=== PATIENT | male | born 1970 | race Caucasian/White ===

== ENCOUNTER 2023-10-15 16:03 | Outpatient (CLI) | payer BC, SELFPAY | END 2023-10-15 16:04 | disposition home or self-care (01) | PROVIDERS: Visit Provider Physician Assistant Medical | DX: Z01.818 Encounter for other preprocedural examination (principal); I10 Essential (primary) hypertension; E78.5 Hyperlipidemia, unspecified; Z13.29 Encounter for screening for other suspected endocrine disorder; Z12.5 Encounter for screening for malignant neoplasm of prostate | CPT/HCPCS: 80053; 84443; G0103 ==

== ENCOUNTER 2023-10-21 11:29 | Outpatient (CLI) | payer BC, SELFPAY | END 2023-10-21 11:30 | disposition home or self-care (01) | LOC: LKVREF 11:29 | PROVIDERS: PCP Physician Assistant Medical; Visit Provider Physician Assistant Medical | DX: E78.5 Hyperlipidemia, unspecified (principal); R79.89 Other specified abnormal findings of blood chemistry; R73.09 Other abnormal glucose | CPT/HCPCS: 80061 ==

== ENCOUNTER 2023-10-26 10:46 | Outpatient (CLI) | payer BC, SELFPAY ==
--- NOTE | 2023-10-26 11:00 | CRLHL7_ITS ---
For Patients: As a result of the Cures Act, medical imaging exams and procedure reports are released immediately into your electronic medical record. You may view this report before your referring provider. If you have questions, please contact your health care provider. INDICATION: Lung cancer screening. History of smoking. High risk patient with greater than 20 pack-year smoking history. TECHNIQUE: Low-dose lung cancer screening non-contrast CT chest. Dose reduction techniques were used. COMPARISON: None. FINDINGS: NODULES: 2 millimeter calcified granuloma left upper lobe. 2 millimeter nodule right middle lobe, . Additional 2 millimeter nodule right upper lobe, . LUNGS AND PLEURA: Emphysema. MEDIASTINUM: No adenopathy. CORONARY ARTERY CALCIFICATION: None. LIMITED UPPER ABDOMEN: Normal. MUSCULOSKELETAL: Normal. IMPRESSION: Negative for lung cancer screening purposes. LUNG-RADS CATEGORY: 2: Benign. RADIOLOGIST RECOMMENDATION: Continue annual screening with low-dose CT chest in 12 months. Please note that all CT scans at this facility use dose modulation, iterative reconstruction, and/or weight-based dosing when appropriate to reduce radiation dose to as low as reasonably achievable. Dictated by Archie Collins MD @ 10/26/2023 12:39:59 PM (Electronically Signed)
== END 2023-10-26 10:47 | disposition home or self-care (01) ==
PROVIDERS: PCP Physician Assistant Medical; Visit Provider Physician Assistant Medical
DX: Z12.2 Encounter for screening for malignant neoplasm of respiratory organs (principal); Z87.891 Personal history of nicotine dependence
CPT/HCPCS: 71271

== ENCOUNTER 2023-10-30 09:25 | Day surgery (SDC) | payer OTHER, SELFPAY ==
[2023-10-30] VITALS (12 sets, daily range): BP systolic 112–162; BP diastolic 72–122; PULSE 71–91; RESP 13–17; TEMP 36.2–36.6; O2SAT 95–97; BMI 29.8
[2023-10-30] MEDS: SODIUM CHLORIDE 0.9 % (FLUSH) 10 ML SYRINGE IVF (10:00)
[2023-10-30] MEDS: LACTATED RINGERS 1000 ML 1,000 ML 100 ML IV ×2 (10:00→12:17)
--- NOTE | 2023-10-30 11:59 | P.ORPRC_ITS ---
Procedure Note Date of procedure: 10/30/23 Procedure: PREOPERATIVE DIAGNOSIS: 1. Left knee medial meniscus tear POSTOPERATIVE DIAGNOSIS: 1. Left knee medial meniscus tear PROCEDURE: 1. Left knee arthroscopic partial medial menisectomy SURGEON: Simon Hodges M.D. CREDIT REPRESENTATIVE: JOSE Leong. Of note, an assistant professor of archaeology was critical for this case to aid in patient positioning, knee manipulation, instrument exchange, and closure. ANESTHESIA: Spinal EBL: 5 mL TOURNIQUET: Not utilized COMPLICATIONS: None INDICATIONS: 52-year-old male with history of left medial-sided knee pain after work-related injury that he sustained in August 2023. MRI revealed tear of the posterior horn of medial meniscus. Recommendations subcu made for surgical intervention consisting of left knee arthroscopic partial meniscectomy versus possible meniscal repair. Prior to surgery risks and benefits of procedure were discussed with patient all questions were answered and informed consent was obtained. FINDINGS: Arthroscopic examination revealed a complex tear involving the posterior horn of the medial meniscus. Meniscal root attachment was intact. Lateral meniscus was intact. ACL PCL were intact. Small area of grade 2 chondromalacia superior pole patella. Cartilage was otherwise normal no medial, lateral, patellofemoral compartments. DESCRIPTION OF PROCEDURE: After a thorough discussion of risks, benefits, and alternatives, the patient was brought to the operating room and placed upon the operating table. Induction of anesthesia was undertaken as previously noted. 2 g IV Ancef was administered within 1 hr of incision preoperatively. The left lower extremity was prepped and draped in the appropriate sterile fashion. A surgical time-out was performed confirming patient identity, surgical site, and procedure. Anterolateral and anteromedial portals were injected with 0.25% Marcaine with epinephrine. Anterolateral portal established. Anteromedial portal was established after localization with spinal needle. Diagnostic arthroscopy was performed with findings as noted above. The medial meniscus tear was not repairable and root was intact. Decision was made to proceed with partial meniscectomy. Partial medial meniscectomy was performed using combination of arthroscopic biters and motorized shaver. After removing the torn aspects of the meniscus, remnant meniscus was contoured to create smooth transition to normal meniscal tissue. After the meniscectomy had been completed per presented use remnant meniscus was confirmed to be stable. Approximately 20 % of the overall meniscus was resected, but of the portion that was worked on, approx imately 50% of the depth was resected. At this stage, the shaver was reinserted into the suprapatellar pouch and all remaining meniscal debris was evacuated. Instruments were removed, excess fluid was drained, and closure performed with 4-0 Monocryl with Steri-Strips. Dressings were applied, the tourniquet deflated, and the patient was awoken from anesthesia and transferred to the PACU in stable condition. PLAN: 1. Weightbear as tolerated left lower extremity. Crutch as needed for assistance with ambulation. 2. Ice, elevation, acetominophen and/or ibuprofen, and [facility] for pain as need ed. 3. Knee range of motion and quad sets/straight leg raise regularly 4. Follow up in orthopedic clinic in 1-2 weeks for a wound check.
--- NOTE | 2023-10-30 11:59 | W.PM.H&PU ---
History & Physical Update History & Physical Update H&P Reviewed and patient assessed: No changes noted
[2023-10-30] MEDS: CEFAZOLIN 2 GM INJ IVP (12:14)
[2023-10-30] MEDS: BUPIVACAINE 0.25 %/EPI 1:200K 30 ml INJECTION (12:40)
--- NOTE | 2023-10-30 13:01 | W.ANESCHARGE ---
Anesthesia Charges Start Date/Time Anesthesia Start Date: 10/30/23 Anesthesia Start Time: 11:50 Stop Date/Time Anesthesia Stop Date: 10/30/23 Anesthesia Stop Time: 12:58
[2023-10-30] MEDS: HYDROCODONE-ACETAMIN 5-325 MG 1 TAB PO (14:36)
== END 2023-10-30 14:39 | disposition home or self-care (01) ==
PROVIDERS: PCP Physician Assistant Medical; Visit Provider Orthopaedic Surgery
PROC: (CPT 29882; principal; 2023-10-30 12:00)
DX: S83.232A Complex tear of medial meniscus, current injury, left knee, initial encounter (principal)
CPT/HCPCS: 29881; 01400; A9270; J0690; J1100; J1885; J2250; J2704; J3010; J7120; L1833

== ENCOUNTER 2024-01-01 10:15 | Outpatient (RCR) | payer OTHER, SELFPAY | END 2024-02-04 13:38 | disposition home or self-care (01) | PROVIDERS: PCP Physician Assistant Medical; Visit Provider Physician Assistant Surgical | DX: Z98.890 Other specified postprocedural states (principal); Z51.89 Encounter for other specified aftercare | CPT/HCPCS: 97110; 97140; 97162 ==

== ENCOUNTER 2024-02-01 14:23 | Outpatient (CLI) | payer BC, SELFPAY ==
--- NOTE | 2024-03-15 12:19 | W.PM.SLEEP ---
Sleep Study Details Details Interpreting Provider: Pema Romero Date of Sleep Study: 02/01/24 Sleep Study Details: STUDY TYPE:? Home unattended ? BMI:? Not recorded ORDERING PROVIDER:? Luis INDICATION:? Concerns about sleep apnea ? SLEEP SUMMARY:? 528 minutes monitored RESPIRATORY SUMMARY:? AHI 35.2 Low oxygen 77 30.6% of study oxygen less than 90% Snoring 99% PERIODIC LIMB MOVEMENTS OF SLEEP:? Not recorded CARDIAC:? Range 61-100, mean 78.2 beats per minute IMPRESSION:? Severe obstructive sleep apnea with significant hypo oxygenation RECOMMENDATION: In-lab titration versus AutoSet CPAP 4-17.
== END 2024-02-01 14:24 | disposition home or self-care (01) ==
PROVIDERS: PCP Physician Assistant Medical; Visit Provider Otolaryngology
DX: G47.33 Obstructive sleep apnea (adult) (pediatric) (principal)
CPT/HCPCS: 95806

== ENCOUNTER 2024-05-18 15:59 | Outpatient (CLI) | payer BC, SELFPAY | END 2024-05-18 16:00 | disposition home or self-care (01) | PROVIDERS: PCP Physician Assistant Medical; Visit Provider Physician Assistant Medical | DX: I10 Essential (primary) hypertension (principal) | CPT/HCPCS: 80053 ==

== ENCOUNTER 2024-06-07 06:47 | Outpatient (CLI) | payer BC, SELFPAY ==
--- NOTE | 2024-06-07 07:00 | CRLHL7_ITS ---
For Patients: As a result of the Century Cures Act, medical imaging exams and procedure reports are released immediately into your electronic medical record. You may view this report before your referring provider. If you have questions, please contact your health care provider. INDICATION: FATTY LIVER AND CIRRHOSIS COMPARISON: CT lung screening study 10/26/2023 TECHNIQUE: Real time jin scale imaging and color Doppler analysis was performed of the right upper quadrant. FINDINGS: Liver echotexture is diffusely increased. Patchy areas of decreased attenuation adjacent to the gallbladder consistent with areas of focal fatty sparing. Heterogeneous masslike area within the left hepatic lobe measures 6.0 x 4.1 x 7.2 cm. The previous screening chest CT does not show any appreciable abnormality in the liver although the technique was limited. Main portal vein is patent with antegrade flow and measures 1.2 cm. There is a normal appearance of the hepatic IVC and proximal abdominal aorta. There is no evidence of ascites. Multiple hyperechoic foci associated with the gallbladder wall measuring up to 6.4 millimeters. Approximately 5 of these lesions are present and are non mobile. The gallbladder wall measures 1 mm in thickness. The common bile duct is of normal size and measures 4 mm in diameter at the level of the tracy hepatis. The pancreas appears lobular. There is no evidence of a stone or hydronephrosis within the right kidney. The right kidney measures 12.5 cm in length. IMPRESSION: Diffuse hepatic steatosis with geographic areas of focal fatty sparing adjacent to the gallbladder. Indeterminate heterogeneous masslike area within the left hepatic lobe measuring 6.0 x 4.1 x 7.[address] or MRI of the liver for further evaluation. Multiple gallbladder polyps measuring up to 6.4 millimeters. Lobular contour of the visualized pancreas which could be further evaluated with CT or MRI. Dictated by Archie Collins MD @ 06/07/2024 8:42:29 AM (Electronically Signed)
== END 2024-06-07 06:48 | disposition home or self-care (01) ==
LOC: US 06:48
PROVIDERS: PCP Physician Assistant Medical; Visit Provider Physician Assistant Medical
DX: K76.0 Fatty (change of) liver, not elsewhere classified (principal); K82.4 Cholesterolosis of gallbladder; R79.89 Other specified abnormal findings of blood chemistry
CPT/HCPCS: 76705

== ENCOUNTER 2024-06-22 14:39 | Outpatient (CLI) | payer BC, SELFPAY | END 2024-06-22 14:40 | disposition home or self-care (01) | LOC: LKVREF 14:41 | PROVIDERS: PCP Physician Assistant Medical; Visit Provider Physician Assistant Medical | DX: R79.89 Other specified abnormal findings of blood chemistry (principal); I10 Essential (primary) hypertension | CPT/HCPCS: 80053 ==

== ENCOUNTER 2024-06-27 09:00 | Outpatient (CLI) | payer BC, SELFPAY ==
--- NOTE | 2024-06-27 09:15 | CRLHL7_ITS ---
For Patients: As a result of the Century Cures Act, medical imaging exams and procedure reports are released immediately into your electronic medical record. You may view this report before your referring provider. If you have questions, please contact your health care provider. INDICATION: Hepatomegaly, follow up gallbladder polyps, liver mass, and lobular pancreas TECHNIQUE: 1.5 T MRI of the abdomen was performed with pre and postcontrast T1 weighted imaging; T2 weighted imaging; diffusion weighted imaging; in and out of phase imaging. 18 mL Dotarem IV. COMPARISON: None available FINDINGS: Lungs: The lung bases are clear. No pleural or pericardial effusion. Liver: Top-normal liver size measuring up to 17 cm in craniocaudal dimension. Homogeneous liver parenchyma. There is signal dropout of the hepatic parenchyma on out of phase imaging. No hepatic masses. Scattered subcentimeter T2 hyperintensities too small to accurately characterize, but likely benign cysts or hemangiomas. Biliary tree and gallbladder: No intra or extrahepatic biliary dilation. Fluid-filled gallbladder without stones. Few punctate scattered foci of enhancement within the gallbladder measuring up to 4 mm, likely representing gallbladder polyps. Spleen: Unremarkable Pancreas: Normal pancreatic parenchyma. No pancreatic masses. No pancreatic duct dilation. Adrenal glands: Left adrenal nodule measuring 0.9 cm. No signal dropout is appreciated on out of phase imaging to suggest intravoxel fat, however its small size limits evaluation. Kidneys and ureters: No renal masses or hydronephrosis. Subcentimeter left parapelvic cysts. GI tract: No evidence of obstruction or inflammation. Vasculature: The IVC and aorta are patent. No abdominal aortic aneurysm. Lymph nodes: No lymphadenopathy. Abdominal wall: Unremarkable Bones: Degenerative change of the imaged spine. IMPRESSION: 1. Top-normal liver size measuring 17 cm in craniocaudal dimension. Hepatic steatosis. No suspicious hepatic masses are appreciated. 2. Few punctate scattered foci of enhancement within the gallbladder measuring up to 4 mm, likely representing gallbladder polyps. 3. Indeterminate left adrenal nodule measuring 0.9 cm. Please correlate with adrenal function tests. Multi phase adrenal protocol CT may be helpful for further characterization. Otherwise consider short interval follow-up imaging in 6-12 months to evaluate stability. 4. No suspicious pancreatic lesions. Dictated by Deb Lu MD @ 06/28/2024 1:00:33 PM (Electronically Signed)
== END 2024-06-27 09:01 | disposition home or self-care (01) ==
LOC: MRI 09:00
PROVIDERS: PCP Physician Assistant Medical; Visit Provider Physician Assistant Medical
DX: R16.0 Hepatomegaly, not elsewhere classified (principal); Q45.3 Other congenital malformations of pancreas and pancreatic duct; K82.4 Cholesterolosis of gallbladder; E27.9 Disorder of adrenal gland, unspecified
CPT/HCPCS: 74183; A9575

== ENCOUNTER 2024-10-27 07:47 | Outpatient (CLI) | payer BC, SELFPAY | END 2024-10-27 07:48 | disposition home or self-care (01) | LOC: CT 07:49 | PROVIDERS: PCP Physician Assistant Medical; Visit Provider Physician Assistant Medical | DX: Z12.2 Encounter for screening for malignant neoplasm of respiratory organs (principal); Z72.0 Tobacco use | CPT/HCPCS: 71271 ==